=== PATIENT | male | born 1985 | race Caucasian/White ===

== ENCOUNTER 2021-01-10 05:52 | Emergency (ER) | payer MEDICAID, SELFPAY ==
[~2021-01-10] VITALS: Ht 193 cm; Wt 149.1 kg
--- NOTE | 2021-01-10 06:06 | NUR ---
pt ambulated to room 17. awake and alert, and in no acute distress. Pt says he can't take his daily meds as they are missing. Could not take his "meth" meds, and also could not take his prozac today. Unknown as of yet, why they are missing. PA to bedside to eval pt.
[2021-01-10] MEDS ORDERED: SODIUM CHLORIDE FLUSH 10ML SYR IVF ONE (06:30)
[2021-01-10] MEDS ORDERED: SODIUM CHLORIDE 0.9% 1,000ML IVBOLUS ONE (06:30)
--- NOTE | 2021-01-10 06:34 | NUR ---
pt ambulated to room. calm and cooperative. piv started to right ac 18g. tolerated well. blood drawn and sent to lab. urine collected and sent to lab. pt in no acute distress and remains on cr monitor.
[2021-01-10 06:40] LABS: BASOPHILS % (AUTO) 1 % (0-1); EOSINOPHILS % (AUTO) 3 % (1-7); LYMPHOCYTES % (AUTO) 23 % (22-44); MEAN CORPUSCULAR HEMOGLOBIN 30.1 pg (27.5-34.5); MEAN CORPUSCULAR HGB CONC 33.9 g/dL (33.2-36.2); MEAN PLATELET VOLUME 7.1 fL (7.4-10.4); MONOCYTES % (AUTO) 7 % (2-9); NEUTROPHILS % (AUTO) 67 % (42-75); PLATELET COUNT 365 x10^3/uL (130-400); RED BLOOD COUNT 4.96 x10^6/uL (4.38-5.82); RED CELL DISTRIBUTION WIDTH 13.8 % (9.4-14.8)
[2021-01-10 06:42] LABS: MD NO
[2021-01-10 06:49] LABS: ALANINE AMINOTRANSFERASE 36 U/L (12-78); ALBUMIN 3.4 g/dL (3.4-5.0); ANION GAP 8 mmol/L (5-15); CALCIUM 8.9 mg/dL (8.5-10.1); CHLORIDE 110 mmol/L (98-107); CREATININE 1.26 mg/dL (0.7-1.3)
--- NOTE | 2021-01-10 06:53 | NUR ---
report and care to dayshift RN
[2021-01-10 06:59] LABS: ALKALINE PHOSPHATASE 146 U/L (45-117); BILIRUBIN,TOTAL 0.5 mg/dL (0.2-1.0); TOTAL PROTEIN 7.4 g/dL (6.4-8.2)
[2021-01-10 07:03] LABS: AMPHETAMINE SCREEN, URINE Positive (Negative); BARBITURATE SCREEN, URINE Negative (Negative); BENZODIAZEPINE SCREEN, URINE Negative (Negative); CANNABINOID SCREEN, URINE Positive (Negative); COCAINE SCREEN, URINE Negative (Negative); METHADONE SCREEN, URINE Positive (Negative); OPIATE SCREEN, URINE Negative (Negative)
--- NOTE | 2021-01-10 07:35 | NUR ---
PT DENIES CP, SOB. IVF, POC FOR CT.
[2021-01-10 07:42] VITALS: BP 106/78
--- NOTE | 2021-01-10 07:56 | NUR ---
PT TO CT
[2021-01-10] MEDS ORDERED: OMNIPAQUE 350 MG/ML, 100ML BOTTLE ONE (08:05)
--- NOTE | 2021-01-10 08:08 | NUR ---
PT BACK FROM CT.
--- NOTE | 2021-01-10 08:46 | NUR ---
Patient/Caregiver given discharge instructions and they have confirmed that they understand the instructions. Patient ambulatory with steady gait.
== END 2021-01-10 08:48 | disposition home or self-care (01) ==
LOC: ED 08:30
DX: K21.00 Gastro-esophageal reflux disease with esophagitis, without bleeding (principal); R00.2 Palpitations; R00.0 Tachycardia, unspecified
CPT/HCPCS: 36415; 71045; 71275; 80053; 80307; 84443; 85025; 85379; 93005; 96360; 99285; J7030; Q9967